=== PATIENT | female | born 1940 | race Caucasian/White ===

== ENCOUNTER 2016-12-26 12:00 | Emergency (ER) | payer OTHER ==
--- NOTE | ~2016-12-26 | CR173 ---
[facility] A Service [facility] RADIOLOGY TEXT RESULTS PATIENT: ISAIAS GUEVARA LOCATION: SED : 38 UNIT #: [id number] AGE: [address]: Juliana Gresham APRN SEX: F ORDER DR: [id number] [address] [id number] MR#: [id number] Acc #: [id number] NAME: ISAIAS GUEVARA : 1940 SEX: F STUDY DATE/TIME: 12/26/2016 11:45 UNIT: SED ROOM: STUDY DESCRIPTION: CR Knee 3 Views Rt Attending Physician: Juliana Greshma A.P.R.N. Referring Physician: Juliana Gresham A.P.R.N. Ordering Physician: Juliana Byers A.P.R.N. Primary Care Physician: Sunny Lucio M.D. MEDICAL IMAGING REPORT This report is preliminary unless electronic signature is present. EXAM Right knee 3 views 12/26/2016 1145 hours CLINICAL HISTORY Patient fell today hitting knee on ground. Knee pain today. COMPARISON 02/19/2015 FINDINGS AP, lateral and sunrise views demonstrate a small knee joint effusion. There is advanced degenerative change in the patellofemoral compartment similar to prior study. There is joint space loss and spurring in the medial and lateral compartments. No lipohemarthrosis or acute fracture seen. IMPRESSION Moderate suprapatellar joint effusion without lipohemarthrosis or fracture. 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 Dictated by... Aileen Rodriguez M.D. THIS IS AN ELECTRONICALLY VERIFIED REPORT Aileen Rodriguez M.D. at 12/26/2016 6:16 PM [place]/lynn TD: 12/26/2016 15:29 JOB #: [id number] [facility] A Service [facility] RADIOLOGY TEXT RESULTS PATIENT: ISAIAS GUEVARA LOCATION: [facility] #: [id number] : 38 UNIT #: [id number] AGE: [address]: Juliana Gresham APRN SEX: F ORDER DR: MEDICAL IMAGING REPORT
[~2016-12-26 12:00] MED LIST: ACETAMINOPHEN PO; B-12250 MCG; CIPRO PO; HYDROCODON-ACE1 EAC7 PO; IRON TABLETS1 TAB PO; LIPITOR20 MG; PRAVASTATIN SOD40 MG PO; PRILOSEC PO; PROTONIX PO; TRAMADOL HCL50 M2 PO
== END 2016-12-26 12:58 | disposition home or self-care (01) ==
LOC: SED 12:00
DX: M25.461 Effusion, right knee (principal); Z88.5 Allergy status to narcotic agent; Z88.1 Allergy status to other antibiotic agents; Z79.899 Other long term (current) drug therapy; W18.09XA Striking against other object with subsequent fall, initial encounter; Y92.410 Unspecified street and highway as the place of occurrence of the external cause
CPT/HCPCS: 29530; 73562; 99283